=== PATIENT | male | born 1975 ===

== ENCOUNTER 2017-03-20 13:06 | Emergency (ER) | payer OTHER ==
[~2017-03-20] VITALS: Ht 162.6 cm; Wt 56.7 kg
[2017-03-20] MEDS ORDERED: Norco 10-325 T1 EACH PO (14:06)
[2017-03-20] MEDS ORDERED: Crutch1 EACH MISC (14:06)
[2017-03-21] MEDS ORDERED: Percocet 5-3251 EACH PO (00:09)
== END 2017-03-20 15:26 | disposition home or self-care (01) ==
LOC: ER 13:06
DX: S92.012A Displaced fracture of body of left calcaneus, initial encounter for closed fracture (principal); W11.XXXA Fall on and from ladder, initial encounter
CPT/HCPCS: 29105; 73610; 73650; 99283

== ENCOUNTER 2017-03-20 22:04 | Emergency (ER) | payer OTHER ==
[~2017-03-20] VITALS: Ht 162.6 cm; Wt 56.7 kg
[~2017-03-20 22:04] MED LIST: Crutch1 EACH MISC; Norco 10-325 T1 EACH PO
[2017-03-21] MEDS ORDERED: Percocet 5-3251 EACH PO (00:09)
== END 2017-03-21 01:01 | disposition home or self-care (01) ==
LOC: ER 22:04
DX: S92.012A Displaced fracture of body of left calcaneus, initial encounter for closed fracture (principal); W11.XXXA Fall on and from ladder, initial encounter
CPT/HCPCS: 29515; 96372; 99283; J1170; J1885

== ENCOUNTER 2018-05-01 11:22 | Emergency (ER) | payer MEDICAID ==
[~2018-05-01] VITALS: Ht 160 cm; Wt 68.0 kg
[~2018-05-01 11:22] MED LIST changes: +Percocet 5-3251 EACH PO
[2018-05-01 12:40] LABS: BASOPHILS ABSOLUTE AUTO 0.01 K/mm3 (0.00-0.23); BASOPHILS PERCENT AUTO 0 % (0-2); EOSINOPHILS PERCENT AUTO 0 % (0-6); Hematocrit 47.9 % (37.0-53.0); Hemoglobin 16.6 g/dL (13.5-17.5); IMMATURE GRAN ABSOLUTE AUTO 0.02 K/mm3 (0.00-0.10); IMMATURE GRAN PERCENT AUTO 0 % (0-1); LYMPHOCYTES ABSOLUTE AUTO 1.33 K/mm3 (0.84-5.20); LYMPHOCYTES PERCENT AUTO 26 % (21-46); MONOCYTES ABSOLUTE AUTO 0.56 K/mm3 (0.16-1.47); MONOCYTES PERCENT AUTO 11 % (4-13); Mean Corpuscular HGB 33.5 pg (26.0-34.0); Mean Corpuscular HGB Conc 34.7 g/dL (31.5-36.5); Mean Corpuscular Volume 97 fL (80-100); NEUTROPHILS ABSOLUTE AUTO 3.16 K/mm3 (1.96-9.15); NEUTROPHILS PERCENT AUTO 62 % (41-73); Platelet Count 215 K/mm3 (150-400); RDW Standard Deviation 46.3 fL (35.1-46.3); Red Blood Cell Count 4.96 M/mm3 (4.30-5.90); White Blood Cell Count 5.08 K/mm3 (4.00-11.30)
[2018-05-01 13:03] LABS: Alanine Aminotransfer (ALT/SGP 54 U/L (12-78); Albumin, Blood 3.6 g/dL (3.4-5.0); Albumin/Globulin Ratio 0.8 (0.8-1.8); Alk Phos 137 U/L (50-136); Anion Gap 8 mmol/L (6-16); Aspartate Aminotrans (AST/SGOT 58 U/L (12-37); Bilirubin, Total 0.5 mg/dL (0.1-1.0); Blood Urea Nitrogen 7 mg/dL (8-24); Bun/Creatinine Ratio 14.1 (12.0-20.0); CO2, Blood 26 mmol/L (21-32); Calcium, Blood 8.6 mg/dL (8.5-10.1); Chloride, Blood 103 mmol/L (98-108); Globulin, Blood 4.4 g/dL (2.2-4.0); Glomerular Filtration Rate >60 (60-); Glucose, Blood 100 mg/dL (70-99); Potassium, Blood 3.9 mmol/L (3.5-5.5); Sodium, Blood 137 mmol/L (136-145)
[2018-05-01] MEDS ORDERED: Omeprazole20 M1 PO (14:17)
== END 2018-05-01 14:29 | disposition home or self-care (01) ==
LOC: ER 11:22
PROVIDERS: Physician Assistant
DX: R10.13 Epigastric pain (principal); B34.9 Viral infection, unspecified; F17.200 Nicotine dependence, unspecified, uncomplicated
CPT/HCPCS: 36415; 74022; 80053; 82272; 83690; 85025; 96361; 96374; 99283-25; J2405; J7030

== ENCOUNTER 2018-08-30 09:30 | Emergency (ER) | payer OTHER ==
[~2018-08-30] VITALS: Ht 160 cm; Wt 56.7 kg
[~2018-08-30 09:30] MED LIST changes: +Omeprazole20 M1 PO
== END 2018-08-30 10:45 | disposition home or self-care (01) ==
LOC: ER 09:30
DX: M25.461 Effusion, right knee (principal); F17.200 Nicotine dependence, unspecified, uncomplicated
CPT/HCPCS: 73564; 99283-25

== ENCOUNTER 2021-01-24 12:57 | Emergency (ER) | payer SELFPAY ==
[~2021-01-24] VITALS: Ht 162.6 cm; Wt 68.0 kg
== END 2021-01-24 15:24 | disposition home or self-care (01) ==
LOC: ER 12:57
DX: M17.11 Unilateral primary osteoarthritis, right knee (principal)
CPT/HCPCS: 73562-RT; 99283-25

== ENCOUNTER 2023-03-13 14:51 | Emergency (ER) | payer OTHER ==
[~2023-03-13] VITALS: Ht 162.6 cm; Wt 56.7 kg
[~2023-03-13 14:51] MED LIST changes: +ACET500 PO; +CEPH500 PO; +IBUP400 PO
[2023-03-13 14:53] VITALS: BP 161/53
== END 2023-03-13 17:51 | disposition left against medical advice (07) ==
LOC: ER 14:51
DX: F22 Delusional disorders (principal); Z53.29 Procedure and treatment not carried out because of patient's decision for other reasons
CPT/HCPCS: 99282

== ENCOUNTER 2024-12-18 12:07 | Day surgery (SDC) | payer OTHER ==
[~2024-12-18] VITALS: Ht 157.5 cm; Wt 56.5 kg
[2024-12-18] VITALS (12 sets, daily range): BP systolic 95–127; BP diastolic 52–80
[~2024-12-18 12:07] MED LIST changes: +MELO7.5 PO; +OMEP20ER PO
[2024-12-18] MEDS ORDERED: Ondansetron HCl 2 MG / ML 2ML Vial IV PRN ×2 (12:30→16:05)
[2024-12-18] MEDS ORDERED: Magnesium Hydroxide Conc 10 ML UDC PO PRN (12:30)
[2024-12-18] MEDS ORDERED: Metoclopramide HCl 5MG / ML 2ML Vial IV PRN (12:30)
[2024-12-18] MEDS ORDERED: HYDROmorphone HCl/Pf 1MG SYR IV PRN ×2 (12:35→16:05)
[2024-12-18] MEDS ORDERED: FLU VACC TS2025-26(6MOS UP)/PF 45 MCG/0.5 ML SYRINGE IM SCH (12:35)
[2024-12-18] MEDS ORDERED: CeFAZolin Sodium 2,000 MG in NS 100 ML IV SCH ×3 (12:50→22:00)
[2024-12-18] MEDS ORDERED: Chlorhexidine Mouth Care 15 ML UDC MT SCH (12:55)
[2024-12-18] MEDS ORDERED: Tranexamic Acid 100 ML IV SCH (12:55)
[2024-12-18] MEDS ORDERED: Ropivacaine 0.5% HCl/Pf 123.125 MG,EPINEPHrine HCL 0.25 MG,Ketorolac Tromethamine 15 MG... INFIL SCH (12:55)
--- NOTE | 2024-12-18 13:21 | NUR ---
Ambulatory in Day Surgery History, Chart, Medications and Allergies reviewed before start of procedure. Pre-Op teaching done. Pt verbalizes understanding. Patient States Post-Procedure ride home has been arranged.
[2024-12-18] MEDS ORDERED: Bupivacaine 0.5% HCl 5 MG/ML 30MLVIAL ONE (14:10)
[2024-12-18] MEDS ORDERED: Ondansetron HCl 2 MG / ML 2ML Vial ONE (14:11)
[2024-12-18] MEDS ORDERED: Midazolam HCl 1MG / ML 2ML Vial ONE (14:31)
[2024-12-18] MEDS ORDERED: FentaNYL Citrate 50 MCG/ML 2 ML Injection IV PRN ×2 (16:00→16:05)
[2024-12-18] MEDS ORDERED: Dexamethasone Sodium Phosphate 4 MG/ML 5ML VIAL IV PRN (16:05)
[2024-12-18] MEDS ORDERED: Ketorolac Tromethamine 15mg Vial IV PRN (16:10)
--- NOTE | 2024-12-18 17:37 | NUR ---
PT TO ROOM 221 FROM PACU. POST OP VS STARTED AND STABLE. PT UNABLE TO WIGGLE TOES. POLAR PACK IN PLACE. PT DENIES PAIN. SNACKS PROVIDED. WILL CONTINUE TO MONITOR.
[2024-12-18] MEDS ORDERED: Ketorolac Tromethamine 15mg Vial IV SCH (18:00)
--- NOTE | 2024-12-19 04:15 | NUR ---
SHIFT SUMMARY EMILY WAS ALERT AND FULLY ORIENTED ON ASSESSMENT. PT DENIES SOB, OR CHEST PAIN, BUT DID BECOME MILDLY NAUSEOUS LATE IN THE SHIFT. PT REPORTS HIGH PAIN, BUT MEDICATION IS EFFECTIVE. SENSATION TO BLE'S RETURNED, CIRCULATION INTACT. INSCISION C/D/I. PT AMBULATING/ VOIDING APPROPRIATELY.
[2024-12-19 06:04] LABS: BASOPHILS ABSOLUTE AUTO 0.04 K/mm3 (0.00-0.23); BASOPHILS PERCENT AUTO 0 % (0-2); EOSINOPHILS ABSOLUTE AUTO 0.10 K/mm3 (0.00-0.68); EOSINOPHILS PERCENT AUTO 1 % (0-6); Hematocrit 33.5 % (37.0-53.0); Hemoglobin 11.1 g/dL (13.5-17.5); IMMATURE GRAN ABSOLUTE AUTO 0.07 K/mm3 (0.00-0.10); IMMATURE GRAN PERCENT AUTO 1 % (0-1); LYMPHOCYTES ABSOLUTE AUTO 1.58 K/mm3 (0.84-5.20); LYMPHOCYTES PERCENT AUTO 12 % (21-46); MONOCYTES ABSOLUTE AUTO 1.14 K/mm3 (0.16-1.47); MONOCYTES PERCENT AUTO 8 % (4-13); Mean Corpuscular HGB Conc 33.1 g/dL (31.5-36.5); Mean Corpuscular Volume 98 fL (80-100); NEUTROPHILS ABSOLUTE AUTO 10.84 K/mm3 (1.96-9.15); NEUTROPHILS PERCENT AUTO 79 % (41-73); NRBC ABSOLUTE 0.00 K/mm3 (0.00-0.02); NRBC Auto 0.0 /100 WBC (0.0-0.2); Platelet Count 250 K/mm3 (150-400); RDW Coefficient Variation 14.0 % (11.7-14.2); RDW Standard Deviation 50.4 fL (35.1-46.3)
[2024-12-19 06:26] VITALS: BP 103/63
[2024-12-19 06:30] LABS: Anion Gap 9.0 mmol/L (3-11); Blood Urea Nitrogen 13.0 mg/dL (8-24); CO2, Blood 28.0 mmol/L (21-32); Calcium, Blood 8.6 mg/dL (8.5-10.1); Chloride, Blood 102.0 mmol/L (98-108); Creatinine, Blood 0.62 mg/dL (0.60-1.20); Glucose, Blood 126.0 mg/dL (70-99); Magnesium, Blood 2.0 mg/dL (1.6-2.4); Potassium, Blood 3.4 mmol/L (3.5-5.5); Sodium, Blood 136.0 mmol/L (136-145)
[2024-12-19 07:03] VITALS: BP 105/69
[2024-12-19] MEDS ORDERED: DOCU100 PO (09:13)
[2024-12-19] MEDS ORDERED: ASPI81CH PO (09:13)
[2024-12-19] MEDS ORDERED: ACET500 PO (09:13)
[2024-12-19] MEDS ORDERED: OXAYDO5 M1 PO (09:17)
--- NOTE | 2024-12-19 12:59 | NUR ---
SUMMARY ASSUMED CARE OF PT @0700. VSS. AXO4. PT COMPLAINING OF HEART BURN BUT BY THE TIME A TUMS ORDER WAS OBTAINED- PT STATED HEARTBURN WAS GONE. PAIN MEDS ADMINISTERED TO PT - PAIN RELIEVED PER PT. TOLERATED PO INTAKE WELL. TOLERATED PHYSICAL THERAPY WELL BUT PT DOES HAVE CHRONIC STIFFNESS TO EXTREMITY. VOIDED WELL. FULL SENSATION REPORTED TO EXTREMITIES. AQUACEL PRESENT TO R KNEE - DIME SIZE SHADOWING NOTED TO BOTTOM OF DRESSING. PT PROVIDED WITH EXTRA AQUACEL FOR DC AND INSTRUCTED TO MONITOR AREA FOR INCREASED BLEEDING. POTASSIUM REPLACED ORALLY THIS AM WELL DUE TO BLOOD POTASSIUM LEVEL 3.4. DC INSTRUCTIONS PROVIDED TO PT. DOSED ONCE MORE FOR PAIN MANAGEMENT PT DID NOT HAE PAIN PRESCRIPTIONS YET FROM PHARMACY. BELONGINGS PACKED UP. PT WHEELED OUT AND DC'D WITH STAFF/FRIEND @1553.
== END 2024-12-19 11:23 | disposition home or self-care (01) ==
LOC: ORSCMMR 12:07 → SURS 12:07 → ORSCMMR 12:09 → ORD 13:30 → SURS 17:31 → ORSCMMR 12-19 11:23
PROVIDERS: Orthopaedic Surgery
PROC: 0SRC0JA Replacement of Right Knee Joint with Synthetic Substitute, Uncemented, Open Approach (ICD-10-PCS; principal; 2024-12-18 15:00)
PROC: 0QP104Z Removal of Internal Fixation Device from Sacrum, Open Approach (ICD-10-PCS; principal; 2024-12-18 15:00)
PROC: 8E0Y0CZ Robotic Assisted Procedure of Lower Extremity, Open Approach (ICD-10-PCS; principal; 2024-12-18 15:00)
DX: M17.11 Unilateral primary osteoarthritis, right knee (principal); Z79.899 Other long term (current) drug therapy; F17.220 Nicotine dependence, chewing tobacco, uncomplicated
CPT/HCPCS: 27447; 0055T; 20680; 36415; 73560-RT; 80048; 83735; 85025; 97110; 97116; 97162; 97530; A9270; C1713; C1776; J0166; J0690; J0735; J1885; J2250; J2405; J2704; J2795; J7120